=== PATIENT | female | born 1995 ===

== ENCOUNTER 2017-06-27 01:33 | Emergency (ER) | payer BC, OTHER ==
[2017-06-27] MEDS ORDERED: predniSONE 20 MG TABLET (UD) PO ONE (01:50)
[2017-06-27] MEDS ORDERED: AZITHROMYCIN 500 MG TABLET PO ONE (01:51)
--- NOTE | 2017-06-27 01:53 | PDOC ---
History of Present Illness - General Chief Complaint: Pain, Acute Stated Complaint: COLD SYMPTOMS/FEVER Time Seen by Provider: 06/27/17 01:45 - History of Present Illness Initial Comments: 06/27/17 01:52 21yoF hx oF RA on Plaquenil presnets w/ 3d of cough and fevers. States mom noted significant wheezing tonight, Pt used an albuterol neb (belings to her mother) without improvement. Past History - Past Medical History Allergies/Adverse Reactions: Allergies Allergy/AdvReac Type Severity Reaction Status Date / Time No Known Allergies Allergy Verified 06/27/17 01:54 Home Medications: Ambulatory Orders Azithromycin 250 mg PO DAILY 4 Days #4 tablet 06/27/17 Fluoxetine HCl [Prozac] 60 mg PO DAILY 06/27/17 Guaifenesin [Robitussin -] 300 mg PO ONCE PRN 4 Days #120 ml 06/27/17 Hydroxychloroquine Sulfate [Plaquenil] 200 mg PO BID 06/27/17 Prednisone [Prednisone 50 MG TABLETS] 50 mg PO DAILY 5 Days #5 tablet 06/27/17 Review of Systems - Review of Systems All Other Systems: Reviewed and Negative *Physical Exam - Physical Exam Comments: 06/27/17 02:06 NAD, well appearing MMM, post OP WNL, + sinus congestion no cervical LAD RRR good air movement, + insp and exp wheezing throughout, no ronchi, no crackles, no accessory muscles. soft NTND no rash WWP A&O x 3 ED Treatment Course - RADIOLOGY Radiology Studies Ordered: Category Date Time Status CHEST PA & LAT [RAD] Stat Radiology 06/27/17 01:51 Ordered Radiograph Interpretation: 06/27/17 03:41 CXR without focal infiltrate on my read. Medical Decision Making - Medical Decision Making 06/27/17 02:08 21yoF hx of RA on plaquenil presens w/ cough and pulmnary symptoms. Likely viral bronchitis, r/o PNA. - UPT, CXR - nebs, azith, steroids. - reeval for DC. 06/27/17 03:42 no improvement with albuterol. Dx w/ bronchitis, non-responder to alb. Will DC w/ steroids, azithromycin, nsaid and cough meds PRN. *DC/Admit/Observation/Transfer Diagnosis at time of Disposition: Bronchitis - Discharge Dispostion Disposition: HOME Condition at time of disposition: Stable Decision to Admit order: No - Prescriptions Prescriptions: Guaifenesin [Robitussin -] 300 mg PO ONCE PRN 4 Days #120 ml PRN Reason: Cough - Referrals - Patient Instructions Additional Instructions: treat symptoms as they present. tylenol for fevers Ibuprofen for chest pain. prescriptions have been sent to your pharmacy: prednisone azithromycin guaifenesin (coug medicine) Rest, drink plenty of fluids. Return to ER for: fever over 104, severe difficulty breathing. - Post Discharge Activity
[2017-06-27 02:02] VITALS: BP 112/68; PULSE 88; TEMP 99.4; BMI 30.5
[2017-06-27] MEDS ORDERED: predniSONE 10 MG TABLET (UD) ONE (02:06)
[2017-06-27] MEDS ORDERED: ALBUTEROL SO4 0.083% IH SOL 2.5 MG/3 ML VIAL.NEB. NEB ONE ×2 (02:06→02:14)
[2017-06-27] MEDS ORDERED: AZITHROMYCIN 500 MG TABLET ONE (02:07)
[2017-06-27] MEDS ORDERED: predniSONE 20 MG TABLET (UD) ONE (02:07)
[2017-06-27] MEDS: ALBUTEROL SO4 0.083% IH SOL 2.5 MG/3 ML VIAL.NEB. NEB SCH ×3 (02:11→03:11)
== END 2017-06-27 03:57 | disposition home or self-care (01) ==
LOC: FER 01:33
PROC: 3E0F7GC Introduction of Other Therapeutic Substance into Respiratory Tract, Via Natural or Artificial Opening (ICD-10-PCS; principal; 2017-06-27)
DX: J40 Bronchitis, not specified as acute or chronic (principal)
CPT/HCPCS: 71046-TC-FY; 84703; 99282-25